=== PATIENT | female | born 1960 | race Caucasian/White ===

== ENCOUNTER 2018-10-11 05:30 | Day surgery (SDC) | payer BC ==
[2018-10-08 12:24] LABS: HEMATOCRIT 44.5 % (36.0-47.0); HEMOGLOBIN 15.1 g/dL (12.0-15.5); MEAN CORPUSCULAR HEMOGLOBIN 31.2 pg (27.0-33.4); MEAN CORPUSCULAR VOLUME 92 fl (80-97); PLATELET COUNT 218 10^3/uL (150-450); RED BLOOD COUNT 4.85 10^6/uL (3.72-5.28)
[2018-10-08 12:35] LABS: APPEARANCE,URINE CLEAR; BILIRUBIN,URINE NEGATIVE (NEGATIVE); COLOR,URINE YELLOW; GLUCOSE, URINE NEGATIVE (NEGATIVE); KETONES,URINE NEGATIVE (NEGATIVE); LEUKOCYTE ESTERASE,URINE NEGATIVE (NEGATIVE); NITRITE,URINE NEGATIVE (NEGATIVE); PROTEIN,URINE NEGATIVE (NEGATIVE); URINE SPECIFIC GRAVITY 1.013; UROBILINOGEN,URINE NEGATIVE mg/dL (<2.0)
[~2018-10-11 05:30] MED LIST: LACTATED RINGERS 1000 ML IV PRN; LIDOCAINE 0.5% INJ-PF (5 MG/ML) 50 ML SDV SUBCUT PRN
[2018-10-11] MEDS ORDERED: KETAMINE HCL INJ 500 MG/10 ML VIAL ONE (07:07)
[2018-10-11] MEDS ORDERED: PROPOFOL INJ 200 MG/20 ML VIAL IV ONE (07:08)
[2018-10-11] MEDS ORDERED: FENTANYL CITRATE INJ/PF 100 MCG/2 ML AMPUL ONE (07:08)
[2018-10-11] MEDS ORDERED: MIDAZOLAM 2 MG/2 ML INJ ONE (07:08)
[2018-10-11] MEDS ORDERED: RINGERS SOLUTION,LACTATED 1,000 ML IV PRN (08:26)
[2018-10-11] MEDS ORDERED: IBUPROFEN 800 MG TABLET PO PRN (08:26)
[2018-10-11] MEDS ORDERED: KETOROLAC TROMETHAMINE INJ/PF 30 MG/1 ML SDV IV PRN (08:26)
[2018-10-11] MEDS ORDERED: OXYCODONE-ACETAMINOPHEN 5-325 MG TABLET PO PRN ×2 (08:26)
[2018-10-11] MEDS ORDERED: KETOROLAC TROMETHAMINE INJ/PF 30 MG/1 ML SDV ONE (08:29)
--- NOTE | 2018-10-11 08:31 | Operative Report ---
Operative Report DATE OF SURGERY: 10/11/18 PREOPERATIVE DIAGNOSIS: Postmenopausal bleeding with stenotic cervix POSTOPERATIVE DIAGNOSIS: Same plus uterine polyp OPERATION: D&C hysteroscopy with removal of polyp using the MyoSure device SURGEON: MARU VILLASENOR ANESTHESIA: GA TISSUE REMOVED OR ALTERED: Uterine polyp COMPLICATIONS: None ESTIMATED BLOOD LOSS: 50 cc INTRAOPERATIVE FINDINGS: Uterine polyp attached to the fundus PROCEDURE: Patient was taken to the OR and placed in supine position. General anesthesia was induced. She is placed in a dorsolithotomy position using Daniel stirrups. Her vagina and perineum were prepared and draped in sterile fashion. Her bladder was drained with a red rubber catheter. A weighted speculum was placed in the anterior lip cervix was grasped with a tenaculum. Uterus was sounded to 7 cm before and after the case. The cervix was dilated. Endocervical curettings were obtained. Hysteroscopy was performed and a central polyp could be seen in the uterine cavity. I attempted to grab the polyp with the polyp forceps however this was unsuccessful. Next we used the Myosure to remove the polyp under direct visualization. Sharp curettage was carried out at the end of the case. Repeat hysteroscopy showed an empty uterine cavity. There was no evidence of perforation of the uterus. All instruments were removed. Patient was placed back in supine position taken to recovery room in stable condition. All specimens were sent for pathology.
--- NOTE | 2018-10-11 08:34 | Discharge Summary ---
Discharge Summary (SDC) - Discharge Final Diagnosis: Postmenopausal bleeding, uterine polyp Date of Surgery: 10/11/18 Discharge Date: 10/11/18 Condition: Good Prescriptions: Oxycodone HCl/Acetaminophen [Percocet 5-325 mg Tablet] 1 tab PO Q4HP PRN #20 tablet PRN Reason: Referrals: ARTIS MAHONEY MD [Primary Care Provider] - Discharge Diet: Regular Discharge Activity: Balance Activity w/Rest, Pelvic Rest Home Care Assistance: None Needed Report the Following to Your Physician Immediately: Fever over 101 Degrees, Unusual Bleeding
[2018-10-11] MEDS ORDERED: DIPHENHYDRAMINE HCL 50 MG/ML VIAL IV PRN (08:47)
[2018-10-11] MEDS ORDERED: ONDANSETRON HCL INJ/PF 4 MG/2 ML SDV ONE (09:44)
[2018-10-11 10:22] VITALS: BP 170/95
== END 2018-10-11 10:15 | disposition home or self-care (01) ==
LOC: OROUT 05:30
PROVIDERS: ATTEND Obstetrics & Gynecology
DX: N93.8 Other specified abnormal uterine and vaginal bleeding (principal); N88.2 Stricture and stenosis of cervix uteri; N84.0 Polyp of corpus uteri; Z87.891 Personal history of nicotine dependence; E78.00 Pure hypercholesterolemia, unspecified
CPT/HCPCS: 36415; 85027; 81001; 88305 ×2; 58558; J2250; J3010; J3490; J1885; J2405; J2704; 952

== ENCOUNTER 2019-01-12 09:48 | Day surgery (SDC) | payer BC ==
[~2019-01-12 09:48] MED LIST changes: +CEFAZOLIN 1 GM/D5W RTU 1 GM/50 ML RTUPB IV ONE; +CEFAZOLIN 1 GM/D5W RTU 1 GM/50 ML RTUPB IV PRN; -LACTATED RINGERS 1000 ML IV PRN; -LIDOCAINE 0.5% INJ-PF (5 MG/ML) 50 ML SDV SUBCUT PRN
--- NOTE | 2019-01-12 11:03 | RADIOLOGY REPORT (SQ) ---
EXAM DESCRIPTION: CHEST SINGLE VIEW COMPLETED DATE/TIME: 01/12/2019 10:49 am REASON FOR STUDY: pre op C54.1 MALIGNANT NEOPLASM OF ENDOMETRIUM COMPARISON: None. NUMBER OF VIEWS: One view. TECHNIQUE: Single frontal radiographic image of the chest acquired. LIMITATIONS: None. FINDINGS: LUNGS AND PLEURA: Stable appearance. MEDIASTINUM AND HILAR STRUCTURES: Stable heart size and mediastinal structures. HEART AND VASCULAR STRUCTURES: Stable appearance. SUPPORT DEVICES: Appropriate location without change. BONES: No acute findings. OTHER: No other significant finding. IMPRESSION: STABLE APPEARANCE OF THE CHEST. SUPPORT DEVICES UNCHANGED. TECHNICAL DOCUMENTATION: JOB ID: [id number] [employer]- All Rights Reserved Reading location - IP/workstation name: [email or web address]
[2019-01-12 11:11] LABS: HEMATOCRIT 41.6 % (36.0-47.0); MEAN CORPUSCULAR HEMOGLOBIN 30.8 pg (27.0-33.4); MEAN CORPUSCULAR HGB CONC 33.7 g/dL (32.0-36.0); MEAN CORPUSCULAR VOLUME 91 fl (80-97); PLATELET COUNT 217 10^3/uL (150-450); RED BLOOD COUNT 4.55 10^6/uL (3.72-5.28); WHITE BLOOD COUNT 5.7 10^3/uL (4.0-10.5)
[2019-01-12] MEDS ORDERED: LIDOCAINE 1% INJ-PF (10 MG/ML) 30 ML SDV ONE (12:16)
[2019-01-12] MEDS ORDERED: LIDOCAINE 1%/EPINEPHRINE INJ 20 ML VIAL ONE (12:16)
[2019-01-12] MEDS ORDERED: ONDANSETRON HCL INJ/PF 4 MG/2 ML SDV ONE (12:21)
[2019-01-12] MEDS ORDERED: PROPOFOL INJ 200 MG/20 ML VIAL IV ONE (12:21)
[2019-01-12] MEDS ORDERED: MIDAZOLAM 2 MG/2 ML INJ ONE (12:21)
[2019-01-12] MEDS ORDERED: FENTANYL CITRATE INJ/PF 100 MCG/2 ML AMPUL ONE (12:21)
[2019-01-12] MEDS ORDERED: FENTANYL CITRATE INJ/PF 100 MCG/2 ML AMPUL IV PRN ×3 (12:48)
[2019-01-12] MEDS ORDERED: ONDANSETRON HCL INJ/PF 4 MG/2 ML SDV IV PRN (12:48)
[2019-01-12] MEDS ORDERED: DIPHENHYDRAMINE HCL 50 MG/ML VIAL IV PRN (12:48)
[2019-01-12] MEDS ORDERED: OXYCODONE-ACETAMINOPHEN 5-325 MG TABLET PO PRN ×2 (12:48)
[2019-01-12] MEDS ORDERED: MORPHINE SULFATE 10 MG/ML INJ IV PRN (12:48)
[2019-01-12] MEDS ORDERED: MEPERIDINE HCL/PF INJ 25 MG/1 ML DISP.SYRIN IV PRN (12:48)
[2019-01-12] MEDS ORDERED: PROMETHAZINE HCL INJ 25 MG/1 ML VIAL IV PRN (12:48)
--- NOTE | 2019-01-12 13:28 | Discharge Summary ---
Discharge Summary (SDC) - Discharge Final Diagnosis: Endometrial carcinoma Date of Surgery: 01/12/19 Discharge Date: 01/12/19 Condition: Good Treatment or Instructions: May use port or catheter next week; shower in 48 hours; prescription for Toradol provided; resume preoperative medications and diet; no heavy lifting pulling or straining. Referrals: ARTIS MAHONEY MD [Primary Care Provider] - Discharge Diet: As Tolerated Discharge Activity: Activity As Tolerated Home Care Assistance: None Needed Report the Following to Your Physician Immediately: Shortness of Breath, Increase in Pain, Fever over 101 Degrees
--- NOTE | 2019-01-12 13:36 | Operative Report ---
Operative Report DATE OF SURGERY: 01/12/19 PREOPERATIVE DIAGNOSIS: Endometrial carcinoma POSTOPERATIVE DIAGNOSIS: Same OPERATION: 1. Focused ultrasound of the right neck. 2. Installation of right subclavian [id number] catheter. 3. Interpretation of intraoperative fluoroscopy SURGEON: JOEY GARCIA ANESTHESIA: LMAC TISSUE REMOVED OR ALTERED: none COMPLICATIONS: none ESTIMATED BLOOD LOSS: scant INTRAOPERATIVE FINDINGS: see below PROCEDURE: The patient was seen in preop holding her of the right neck was marked. She was then taken to the main operating room where LMAC anesthesia was induced. Arms tucked, cervical spine extended, and head rotated to the left. Right chest wall , neck, and shoulder prepped and draped in sterile fashion Surgical plan and surgical timeout were conducted. The right internal jugular vein was scanned with a variable frequency linear transducer. Skin was anesthetized 1% plain lidocaine and a jose manuel made the skin with 11 blade. Micro needle and wire were threaded into the right internal jugular vein using the ultrasound as a guide. A suitable site for placement of the right subclavian port was chosen. Skin was anesthetized with 1% plain lidocaine, 3 cm incision was made parallel to the clavicle with a #10 blade, and a pocket large enough to accommodate a single- chamber port was developed with electrocautery and blunt dissection. The catheter was then trimmed to the appropriate length, tunneled between the 2 incisions, attached to the port with the plastic ring, tucked into the subclavian pocket. Under fluoroscopic guidance, the micro wire was switched over to a conventional 0.030 inch guidewire without difficulty. The 9 Spanish dilator introducer sheath were threaded over the guidewire, dilator and guidewire removed, catheter threaded into the strip away sheath, sheath removed with catheter in position. Fluoroscopically the tip of the catheter was in the superior vena cava-right atrial junction. There was no kinking of the catheter. Images were retained for the record. We aspirated the port using the Potts needle and flushed satisfactorily. At this point felt the operation was complete sponge and needle counts are correct. Wounds closed with 3-0 Vicryl benzoin and Steri-Strips. Tolerated the procedure well, taken recovery room in stable condition. Mariya dictating
[2019-01-12 14:39] VITALS: BP 137/80
--- NOTE | 2019-01-12 15:32 | RADIOLOGY REPORT (SQ) ---
EXAM DESCRIPTION: FLUORO/CV PLACEMENT COMPLETED DATE/TIME: 01/12/2019 3:24 pm REASON FOR STUDY: PORTACATH PLCMT RIGHT SIDE ASST W/ FLUORO IN OR C54.1 MALIGNANT NEOPLASM OF ENDOM ETRIUM COMPARISON: None. FLUOROSCOPY TIME: 0.1 minutes Spot images saved to PACS. TECHNIQUE: Intra-operative images acquired during surgical procedure to evaluate progress. NUMBER OF IMAGES: 5 LIMITATIONS: None. FINDINGS: Fluoroscopy was provided for intraoperative procedure. Please refer to the operative repo rt for further discussion. IMPRESSION: IMAGE(S) OBTAINED DURING PROCEDURE. COMMENT: Quality ID [id number]: Final reports for procedures using fluoroscopy that document radiation exp osure indices, or exposure time and number of fluorographic images (if radiation exposure indices are not available) Please consult full operative report of the attending physician for description of the procedure. TECHNICAL DOCUMENTATION: JOB ID: [id number] [employer]- All Rights Reserved Reading location - IP/workstation name: [email or web address]
== END 2019-01-12 14:40 | disposition home or self-care (01) ==
LOC: OROUT 09:48
PROVIDERS: ATTEND Surgery
DX: C54.1 Malignant neoplasm of endometrium (principal); E78.00 Pure hypercholesterolemia, unspecified; Z79.899 Other long term (current) drug therapy; F17.210 Nicotine dependence, cigarettes, uncomplicated
CPT/HCPCS: 36561; 36415; 85027; 71045; 77001; 00532; C1752; C1788; J2250; J0690; J3010; J3490; J2405; J2704; J1642; 532